=== PATIENT | female | born 1950 | race Caucasian/White ===

== ENCOUNTER 2022-05-27 14:44 | Emergency (ER) | payer BC ==
[~2022-05-27] VITALS: Ht 167.7 cm; Wt 77.1 kg
[2022-05-27] MEDS ORDERED: methylPREDNISolone 125 MG (Solu-MEDROL) VIAL IVP ONE (16:30)
--- NOTE | 2022-05-27 16:42 | ED Cough/URI ---
General Chief Complaint: COVID19 Suspect/Confirmed Stated Complaint: FEVER,COUGH,SOB, Source: patient Exam Limitations: no limitations History of Present Illness Date Seen by Provider: May 27, 2022 Time Seen by Provider: 16:31 Initial Comments Patient is a 72-year-old female with a history of COPD presents ED with cough, shortness of breath, and flulike symptoms. She states symptoms started last . Started having body aches, fatigue and weakness. She reports a wet cough with worsening shortness of breath . Shortness of breath has progressively worsen with intermittent left sided chest pain with the cough. Her primary care physician started her on dexamethasone azithromycin on Friday. Worsening symptoms today. Subjective fever without vomiting or diarrhea. Denies of any current abdominal pain, headache, dizziness, sore throat, ear pain, visual changes, unilateral muscle weakness or sensory changes. Has been using her breathing treatments at home for her COPD without much improvement. Allergies and Home Medications Allergies Coded Allergies: morphine (Verified Allergy, Unknown, 05/27/22) Patient Home Medication List Home Medication List Reviewed: Yes Review of Systems Review of Systems Constitutional: chills, malaise, weakness EENTM: No hearing loss, No ear pain, No dental problems, No throat pain, No throat swelling Respiratory: cough, short of breath Gastrointestinal: No abdominal pain, No diarrhea, No nausea, No vomiting Genitourinary: No decreased output, No discharge Musculoskeletal: No back pain, No joint pain Skin: No change in color, No change in hair/nails All Other Systems Reviewed Negative Unless Noted: Yes Physical Exam Vital Signs - First Documented 05/27/22 16:17 Temp 37.8 Pulse 86 Resp 22 B/P (MAP) 187/100 (129) Pulse Ox 94 Capillary Refill : Height: '" Weight: lbs. oz. kg; BMI Method: General Appearance: WD/WN, no apparent distress Eyes: Bilateral Eye Normal Inspection, Bilateral Eye PERRL, Bilateral Eye EOMI HEENT: PERRL/EOMI, normal ENT inspection, TMs normal, pharynx normal Neck: non-tender, full range of motion, supple Respiratory: wheezing, expiration Cardiovascular: regular rate, rhythm, no edema, no gallop, no JVD Gastrointestinal: normal bowel sounds, non tender, soft, no organomegaly Extremities: normal range of motion, non-tender, normal inspection, no pedal edema, no calf tenderness Neurologic/Psychiatric: inpatient nursing aide II-XII nml as tested, no motor/sensory deficits, alert, normal mood/affect, oriented x 3 Skin: normal color Progress/Results/Core Measures Suspected Sepsis SIRS Temperature: Pulse: Respiratory Rate: Laboratory Tests 05/27/22 16:48: White Blood Count 10.8 Blood Pressure / Mean: Laboratory Tests 05/27/22 16:48: Creatinine 0.71, Platelet Count 358, Total Bilirubin 0.3 Results/Orders Lab Results Laboratory Tests Test 05/27/22 16:28 05/27/22 16:48 Range/Units Influenza Type A (RT-PCR) Not Detected Not Detecte Influenza Type B (RT-PCR) Not Detected Not Detecte SARS-CoV-2 RNA (RT-PCR) Detected H Not Detecte White Blood Count 10.8 4.3-11.0 10^3/uL Red Blood Count 4.83 3.80-5.11 10^6/uL Hemoglobin 15.5 11.5-16.0 g/dL Hematocrit 46 35-52 % Mean Corpuscular Volume 94 80-99 fL Mean Corpuscular Hemoglobin 32 25-34 pg Mean Corpuscular Hemoglobin Concent 34 32-36 g/dL Red Cell Distribution Width 13.2 10.0-14.5 % Platelet Count 358 130-400 10^3/uL Mean Platelet Volume 10.6 9.0-12.2 fL Immature Granulocyte % (Auto) 1 % Neutrophils (%) (Auto) 77 H 42-75 % Lymphocytes (%) (Auto) 18 12-44 % Monocytes (%) (Auto) 4 0-12 % Eosinophils (%) (Auto) 0 0-10 % Basophils (%) (Auto) 0 0-10 % Neutrophils # (Auto) 8.3 H 1.8-7.8 10^3/uL Lymphocytes # (Auto) 2.0 1.0-4.0 10^3/uL Monocytes # (Auto) 0.4 0.0-1.0 10^3/uL Eosinophils # (Auto) 0.0 0.0-0.3 10^3/uL Basophils # (Auto) 0.0 0.0-0.1 10^3/uL Immature Granulocyte # (Auto) 0.1 0.0-0.1 10^3/uL D-Dimer 0.46 0.00-0.49 UG/ML Sodium Level 142 135-145 MMOL/L Potassium Level 4.5 3.6-5.0 MMOL/L Chloride Level 105 98-107 MMOL/L Carbon Dioxide Level 22 21-32 MMOL/L Anion Gap 15 H 5-14 MMOL/L Blood Urea Nitrogen 16 7-18 MG/DL Creatinine 0.71 0.60-1.30 MG/DL Estimat Glomerular Filtration Rate 91 BUN/Creatinine Ratio 23 Glucose Level 146 H 70-105 MG/DL Calcium Level 9.5 8.5-10.1 MG/DL Corrected Calcium 9.3 8.5-10.1 MG/DL Total Bilirubin 0.3 0.1-1.0 MG/DL Aspartate Amino Transf (AST/SGOT) 16 5-34 U/L Alanine Aminotransferase (ALT/SGPT) 20 0-55 U/L Alkaline Phosphatase 75 40-136 U/L Troponin I < 0.028 <0.028 NG/ML B-Type Natriuretic Peptide 78.0 <100.0 PG/ML Total Protein 7.4 6.4-8.2 GM/DL Albumin 4.3 3.2-4.5 GM/DL My Orders Orders - BEBO RILEY PA Cbc With Automated Diff (05/27/22 16:28) Comprehensive Metabolic Panel (05/27/22 16:28) Bnp Craig (05/27/22 16:28) Troponin I Craig (05/27/22 16:28) Fibrin Degradation Products (05/27/22 16:28) Ekg Tracing (05/27/22 16:28) Chest 1 View, Ap/Pa Only (05/27/22 16:28) Iv/Invasive Line Insertion .IV start (05/27/22 16:28) Methylprednisolone Sod Succ (Solu-Medrol (05/27/22 16:30) Covid 19 Inhouse Test (05/27/22 16:28) Influenza A And B By Pcr (05/27/22 16:28) Albuterol/Ipra Inhalation Soln (Duoneb I (05/27/22 18:30) Svn Small Volume Nebulizer (05/27/22 18:30) Bebtelovimab (Bebtelovimab) (05/27/22 18:45) Nursing Communication (Order) (05/27/22 18:31) Medications Given in ED Vital Signs/I&O 05/27/22 05/27/22 16:17 20:09 Temp 37.8 Pulse 86 85 Resp B/P (MAP) 187/100 (129) 154/98 Pulse Ox 94 94 Capillary Refill : ECG Comment Sinus rhythm, moderate ST depression, 85 bpm, QRS duration 81 MS, QTc 408 MS Departure Communication (PCP) Patient vital signs stable. 94 to 95% on room air. She initially was given 1 L of oxygen for comfort by nursing staff. Does not wear oxygen at home. EKG showed sinus rhythm with some moderate ST depression. Normal troponin, BNP and D-dimer. Not able to compare tEKG. She states the chest pain is secondary to the cough and appears to be more pleuritic and chest. She does have some mild tenderness to palpate. Lab work was otherwise unremarkable. Chest x-ray was negative for pneumonia. COVID positive. She did meet criteria for monoclonal antibody fusion which was provided here. She was given Solu-Medrol and DuoNeb breathing treatment with significant improvement of her wheezing. She does have nebulizer at home. She is currently on azithromycin and dexamethasone. Patient walking oxygen above 93%. Patient denies of any current chest pain. Patient is requesting be discharged. DuoNeb improved her shortness of breath and cough. Still had some mild wheezing. No current chest pain at this time. Recommend follow-up with her primary care physician with today's results in the next 2 to 3 days. Further evaluation with PCP with EKG fidnings or if any worsening chest pain to return back to ED for furthur evaluation. Impression Primary Impression: COVID-19 Disposition: 01 HOME, SELF-CARE Condition: Stable Departure-Patient Inst. Decision time for Depature: 19:44 Referrals: BETTIE LUKE MD (PCP/Family) Primary Care Physician Patient Instructions: COVID-19 (DC) Add. Discharge Instructions: Continue finish her antibiotics and steroids. If feeling increased short of breath return back to ED. follow-up with your PCP in 2 to 3 days for reevaluation. All discharge instructions reviewed with patient and/or family. Voiced understanding. BEBO RILEY May 27, 2022 16:42
[2022-05-27 16:55] LABS: BASOPHILS % (AUTO) 0 % (0-10); EOSINOPHILS % (AUTO) 0 % (0-10); HEMATOCRIT 46 % (35-52); HEMOGLOBIN 15.5 g/dL (11.5-16.0); LYMPHOCYTES % (AUTO) 18 % (12-44); MEAN CORPUSCULAR HEMOGLOBIN 32 pg (25-34); MEAN CORPUSCULAR HGB CONC 34 g/dL (32-36); MEAN CORPUSCULAR VOLUME 94 fL (80-99); MEAN PLATELET VOLUME 10.6 fL (9.0-12.2); MONOCYTES # (AUTO) 0.4 10^3/uL (0.0-1.0); MONOCYTES % (AUTO) 4 % (0-12); NEUTROPHILS # (AUTO) 8.3 10^3/uL (1.8-7.8); NEUTROPHILS % (AUTO) 77 % (42-75); PLATELET COUNT 358 10^3/uL (130-400); WHITE BLOOD COUNT 10.8 10^3/uL (4.3-11.0)
[2022-05-27 17:16] LABS: ALBUMIN 4.3 GM/DL (3.2-4.5); CHLORIDE 105 MMOL/L (98-107); POTASSIUM 4.5 MMOL/L (3.6-5.0); SODIUM 142 MMOL/L (135-145)
[2022-05-27 17:17] LABS: CALCIUM 9.5 MG/DL (8.5-10.1)
[2022-05-27 17:19] LABS: GLUCOSE 146 MG/DL (70-105); TOTAL PROTEIN 7.4 GM/DL (6.4-8.2)
[2022-05-27 17:20] LABS: BILIRUBIN,TOTAL 0.3 MG/DL (0.1-1.0); CARBON DIOXIDE 22 MMOL/L (21-32)
[2022-05-27 17:22] LABS: ALKALINE PHOSPHATASE 75 U/L (40-136); CREATININE SERUM 0.71 MG/DL (0.60-1.30); GFR ESTIMATED 91
[2022-05-27 17:23] LABS: BUN/CREATININE RATIO 23
[2022-05-27 17:25] LABS: ALANINE AMINOTRANSFERASE 20 U/L (0-55)
--- NOTE | 2022-05-27 18:22 | Diagnostic Imaging Report ---
INDICATION: Cough Frontal chest obtained at 0615 p.m. Heart and mediastinal silhouette are normal in appearance. The lungs are clear. There is no pneumothorax or pleural fluid. IMPRESSION: Negative chest. Dictated by: Dictated on workstation # [id number]
[2022-05-27] MEDS ORDERED: RT-ALBUTEROL/IPRATROPIUM 3 ML (DUONEB) VIAL INH ONE (18:30)
[2022-05-27] MEDS ORDERED: BEBTELOVIMAB 175 MG/2 ML VIAL IV ONE (18:45)
[2022-05-27 20:09] VITALS: BP 154/98
== END 2022-05-27 20:09 | disposition home or self-care (01) ==
LOC: ER 14:48
DX: U07.1 COVID-19 (principal); Z79.899 Other long term (current) drug therapy
CPT/HCPCS: 36415; 71045; 80053; 83880; 84484; 85025; 85379; 87636; 93005